=== PATIENT | female | born 1995 | race Caucasian/White ===

== ENCOUNTER 2019-06-10 11:55 | Emergency (ER) | payer MEDICAID ==
[~2019-06-10] VITALS: Ht 157.5 cm; Wt 65.0 kg
[2019-06-10] MEDS ORDERED: IBUPROFEN 600MG TABLET PO ONE (15:00)
[2019-06-10] MEDS ORDERED: OSELTAMIVIR 75MG CAPSULE PO ONE (16:15)
[2019-06-10 16:27] VITALS: BP 128/72
== END 2019-06-10 16:28 | disposition home or self-care (01) ==
LOC: ER 11:55
DX: R50.9 Fever, unspecified (principal); J11.1 Influenza due to unidentified influenza virus with other respiratory manifestations
CPT/HCPCS: 71045; 81025; 87804; 99284